=== PATIENT | female | born 1990 | race Caucasian/White ===

== ENCOUNTER 2018-03-01 06:25 | Day surgery (SDC) | payer BC ==
[~2018-03-01 06:25] MED LIST: Buffered Lidocaine 0.9% SYRIN* 5 ML/SYR SYRINGE INTRADERM ONE; Metoclopramide TAB* 10 MG PO ONE; Scopolamine 1.5 mg* PATCH TRANSDERM ONE; Sodium Citrate/Citric Acid* 15 ML UDC PO ONE
[2018-03-01] MEDS ORDERED: Metoclopramide TAB* 10 MG ONE (07:02)
[2018-03-01] MEDS ORDERED: Bupivacaine 0.25% W/EPI* 10 ML SDV ONE (07:02)
[2018-03-01] MEDS ORDERED: Scopolamine 1.5 mg* PATCH ONE (07:03)
[2018-03-01] MEDS ORDERED: Ketorolac INJ* 30 MG/ML 1 ML VIAL ONE ×2 (07:03→07:07)
[2018-03-01] MEDS ORDERED: Sodium Citrate/Citric Acid* 15 ML UDC ONE (07:03)
[2018-03-01] MEDS ORDERED: ceFAZolin 2 GM PREMIX (*) 2 GM/50 ML BAG IVPB ONE (07:03)
[2018-03-01] MEDS ORDERED: Midazolam* 1 MG/ML 5 ML VIAL (5 MG) ONE (07:07)
[2018-03-01] MEDS ORDERED: Propofol* 10 MG/ML 20 ML BTL IV PUSH ONE (07:07)
[2018-03-01] MEDS ORDERED: Ondansetron INJ* 2 MG/ML VIAL ONE (07:07)
[2018-03-01] MEDS ORDERED: KETAMINE HCL* 50 MG/ML 10 ML VIAL ONE (07:07)
[2018-03-01] MEDS ORDERED: Lidocaine 2% PF * 5 ML VIAL ONE (07:07)
[2018-03-01] MEDS ORDERED: Rocuronium* 10 MG/ML VIAL ONE (07:07)
[2018-03-01] MEDS ORDERED: Dexamethasone IV* 4 MG/ML 1 ML (4 MG) ONE (07:07)
[2018-03-01] MEDS ORDERED: fentaNYL* 50 MCG/ML 2 ML VIAL (100 MCG VIAL) ONE ×3 (07:07→09:29)
[2018-03-01 07:46] LABS: EGFR Non-African American 102.1 (>60)
[2018-03-01] MEDS ORDERED: Ondansetron INJ* 2 MG/ML VIAL IV PRN (08:47)
[2018-03-01] MEDS ORDERED: DiMENhydriNATE IV* 50 MG/ML VIAL IV PUSH PRN (08:47)
[2018-03-01] MEDS ORDERED: Naloxone* 0.4 MG/ML 1 ML VIAL IV PRN (08:47)
[2018-03-01] MEDS ORDERED: Acetaminophen IV 1GM/100ML * 1,000 MG/100 ML VIAL IVPB ONE (08:47)
[2018-03-01] MEDS ORDERED: Acetaminophen IV 1GM/100ML * 100 ML ONE (09:29)
[2018-03-01] MEDS: fentaNYL* 50 MCG/ML 2 ML VIAL (100 MCG VIAL) IV PRN ×2 (09:30→09:46)
[2018-03-01] MEDS ORDERED: HYDROcodone/ACET. 7.5/325 LIQ* 15 ML UDC PO PRN (09:34)
--- NOTE | 2018-03-01 09:34 | OP ---
Operative Report - Blank - Operative Report Date of Operation: 03/01/18 Note: Brief Operative Note Preop Dx: GERD w/ hiatal hernia Postop Dx: same Procedure: Laparoscopic Brittany fundoplication Anesthesia: GET Surgeon: Tenzin Employee Placement Specialist: TAIWO Dawson Fluids: 1200 ml RL EBL: none Specimen: none Drains: none Findings: dictated
[2018-03-01 10:46] VITALS: BP 119/83
--- NOTE | 2018-03-01 22:37 | OP ---
CC: Dr. Dave; Dr. Underwood; [facility] * DATE OF OPERATION: 03/01/18 - [facility] DATE OF : [birth year] SURGEON: Anton Dave MD MATH PROFESSOR: TAIWO Mcdonald ANESTHESIOLOGIST: Dr. Nguyen. ANESTHESIA: General anesthetic, local infiltration. PRE-OP DIAGNOSIS: Gastroesophageal reflux disease. POST-OP DIAGNOSIS: Gastroesophageal reflux disease. OPERATIVE PROCEDURE: Laparoscopic Brittany fundoplication. DESCRIPTION OF PROCEDURE: The patient was supine on the operating room table. After adequate general anesthetic, compression stockings, Valerie Hugger, and intravenous antibiotics, she was placed in the split leg table, properly secured and padded on the table. The abdomen was prepped with antiseptic, draped in sterile fashion. Local infiltrative anesthesia was administered at the umbilicus. Small umbilical incision was created. Blunt port cannula was placed. Insufflation was created with carbon dioxide. Additional cannulae 5 mm right upper quadrant, subxiphoid, and left anterior axillary line and a 12 mm left mid costal was placed through small stab wounds under direct vision after local anesthetic. The hiatus was dissected free in the usual fashion using blunt dissection or LigaSure wherever appropriate. The GE junction was mobilized and brought well down into the abdominal cavity and everything appeared to be in good condition. The crura were closed retroesophageally using 0 Ethibond suture. This was tied extracorporeally with additional intracorporeal throws and this was done with 54-Macanese bougie and was not too tight. Wrap was created in the usual fashion, 2 sutures about a centimeter apart and the wrap was tacked to the esophageal musculature to prevent slippage. This was also not too tight around 54-Macanese bougie. Everything was in good condition. Hemostasis was good. The cannulae removed. Pneumoperitoneum allowed to escape. Fascia of the 2 larger incisions were closed with 0 Vicryl and skin with 5-0 Vicryl in all cases followed by Band- Aids. She tolerated the procedure well and was awakened and brought to the recovery in good condition. There were no complications. No drains. No pathologic specimens. Sponge and instruments counts correct. Estimated blood loss less than 10 mL. [id number]/[facility] #: [id number] [facility]
[2018-03-04] MEDS ORDERED: Scopolamine PATCH Remove* 1 NOTE MISC PATCH OFF ONE (06:00)
== END 2018-03-01 11:25 | disposition home or self-care (01) ==
LOC: OR 06:25
PROVIDERS: ATTEND Surgery
DX: K21.9 Gastro-esophageal reflux disease without esophagitis (principal); J45.909 Unspecified asthma, uncomplicated; Z68.30 Body mass index [BMI] 30.0-30.9, adult
CPT/HCPCS: 36415; 80048; 81025; A9270-GY; J0690; J1100; J1885; J2250; J2405; J2704; J3010

== ENCOUNTER 2019-06-08 11:07 | Emergency (ER) | payer BC ==
[2019-06-08 11:32] VITALS: BP 133/79
--- NOTE | 2019-06-08 11:55 | UC ---
Skin Complaint HPI - HPI Summary HPI Summary: Pt presents with c/o sudden onset of pruritic rash on right side of trunk and abdomen. Pt began taking accutane two days ago and states that she feels "itchy all over" pt denies difficulty breathing, or swelling - History of Current Complaint Chief Complaint: UCRash Time Seen by Provider: 06/08/19 11:47 Stated Complaint: SKIN COMPLAINT Hx Obtained From: Patient Hx Last Menstrual Period: random due to BCP ?: No Onset/Duration: Sudden Onset Skin Exposure Onset/Duration: Hours Ago Timing: Constant Onset Severity: Mild Current Severity: Mild Pain Intensity: 0 Location: Diffuse Character: Pruritus, Redness Aggravating Factor(s): Other - unsure Alleviating Factor(s): Nothing Associated Signs & Symptoms: Positive: Rash Related History: Recent change in medication - Allergy/Home Medications Allergies/Adverse Reactions: Allergies Allergy/AdvReac Type Severity Reaction Status Date / Time STERI STRIPS Allergy Rash Uncoded 06/08/19 11:33 PMH/Surg Hx/FS Hx/Imm Hx Previously Healthy: Yes - Surgical History Surgical History: Yes Surgery Procedure, Year, and Place: 2006 CONSCIOUS SEDATION FOR WISDOM TEETH- DR NÚÑEZ. NOSE CAUTERIZED IN OFFICE WITH NO ANESTHESIA- DR VIEIRA. 2016 TONSILLECTOMY [facility]. acid reflux surgery - Family History Known Family History: Positive: Cardiac Disease - Social History Occupation: Employed Full-time Lives: With Family Alcohol Use: Rare Alcohol Amount: NONE IN 7 MONTHS Substance Use Type: None Smoking Status (MU): Never Smoked Tobacco Have You Smoked in the Last Year: No - Immunization History Vaccination Up to Date: Yes Review of Systems All Other Systems Reviewed And Are Negative: Yes Constitutional: Positive: Negative Skin: Positive: Rash Eyes: Positive: Negative ENT: Positive: Negative Respiratory: Positive: Negative Cardiovascular: Positive: Negative Gastrointestinal: Positive: Negative Genitourinary: Positive: Negative Motor: Positive: Negative Neurovascular: Positive: Negative Musculoskeletal: Positive: Negative Neurological: Positive: Negative Psychological: Positive: Negative Is Patient Immunocompromised?: No Physical Exam Triage Information Reviewed: Yes Appearance: Well-Appearing Vital Signs: Initial Vital Signs Temp 98.8 F 06/08/19 11:28 Pulse 78 06/08/19 11:28 Resp 15 06/08/19 11:28 BP 133/79 06/08/19 11:28 Pulse Ox 100 06/08/19 11:28 Vital Signs Reviewed: Yes Eye Exam: Normal ENT Exam: Normal Dental Exam: Normal Neck exam: Normal Respiratory Exam: Normal Respiratory: Positive: No respiratory distress Musculoskeletal Exam: Normal Neurological Exam: Normal Psychological Exam: Normal Skin: Positive: Rashes - diffusse, macular, erythematous rash on right side of trunk, pt c/o pruritis. Course/Dx - Course Course Of Treatment: Pt was advised to take long acting antihistamine and benadryl to help with symptoms. and to stop taking accutane until able to speak to prescriber of medication - Differential Diagnoses - Skin Complaint Differential Diagnoses: Contact Dermatitis, Medication; Adverse Reaction, Urticaria - Diagnoses Provider Diagnosis: Adverse drug effect Discharge ED - Sign-Out/Discharge Documenting (check all that apply): Patient Departure All imaging exams completed and their final reports reviewed: No Studies - Discharge Plan Condition: Stable Disposition: HOME Patient Education Materials: Antihistamine (By mouth), Acute Rash (ED), Adverse Drug Reaction (ED) Referrals: Teresita Marquez NP [Primary Care Provider] - If Needed Additional Instructions: Please follow up with the audioprosthologist that prescribed the accutane medication for you. - Billing Disposition and Condition Condition: STABLE Disposition: Home
== END 2019-06-08 12:03 | disposition home or self-care (01) ==
LOC: UCCORT 11:07
DX: L27.1 Localized skin eruption due to drugs and medicaments taken internally (principal); T45.2X5A Adverse effect of vitamins, initial encounter; Y92.9 Unspecified place or not applicable; Z91.09 Other allergy status, other than to drugs and biological substances
CPT/HCPCS: 99211; G0463